=== PATIENT | female | born 1935 | race Caucasian/White ===

== ENCOUNTER → 2019-11-30 | Outpatient (CLI) | payer MEDICARE ==
[~2019-11-30] MED LIST: ALBU90OI61 INH; CETI5 PO; ESOM20 PO; FLUT44OIA IH; MONT4 PO; PRED20 PO
== END | disposition home or self-care (01) ==
LOC: PLD 11:43 → LAB SHORT 11:43
DX: D04.39 Carcinoma in situ of skin of other parts of face (principal)
CPT/HCPCS: 88305

== ENCOUNTER 2020-01-11 11:43 | Emergency (ER) | payer MEDICARE ==
[~2020-01-11] VITALS: Ht 154.9 cm; Wt 53.1 kg
[2020-01-11] MEDS ORDERED: Nystatin100000 UN1 PO (15:47)
[2020-01-11] MEDS ORDERED: Amoxicillin875 MG PO (15:47)
[2020-01-11] MEDS ORDERED: LISI5 PO (16:11)
== END 2020-01-11 15:57 | disposition home or self-care (01) ==
LOC: ER 11:43
DX: B37.0 Candidal stomatitis (principal); H66.91 Otitis media, unspecified, right ear; Z88.5 Allergy status to narcotic agent; Z88.8 Allergy status to other drugs, medicaments and biological substances; Z79.899 Other long term (current) drug therapy; Z79.52 Long term (current) use of systemic steroids; J45.909 Unspecified asthma, uncomplicated
CPT/HCPCS: 99282

== ENCOUNTER 2020-11-14 19:00 | Emergency (ER) | payer MEDICARE ==
[~2020-11-14] VITALS: Ht 154.9 cm; Wt 51.3 kg
[~2020-11-14 19:00] MED LIST changes: +Amoxicillin875 MG PO; +LISI5 PO; +Nystatin100000 UN1 PO
[2020-11-14] MEDS ORDERED: CEFP200 PO (23:35)
[2021-02-08] MEDS ORDERED: PROLIA60 MG/1 ML SC (14:14)
[2021-02-08] MEDS ORDERED: XYZAL5 MG PO (14:14)
== END 2020-11-15 | disposition home or self-care (01) ==
LOC: ER 19:00
DX: S81.811A Laceration without foreign body, right lower leg, initial encounter (principal); Z88.5 Allergy status to narcotic agent; Z88.1 Allergy status to other antibiotic agents; Z79.899 Other long term (current) drug therapy; X50.9XXA Other and unspecified overexertion or strenuous movements or postures, initial encounter
CPT/HCPCS: 12002; 90714; 99282-25; A9270

== ENCOUNTER 2021-01-26 06:49 | Day surgery (SDC) | payer MEDICARE ==
[~2021-01-26] VITALS: Wt 51.2 kg
[~2021-01-26 06:49] MED LIST changes: +CEFP200 PO
--- NOTE | 2021-01-26 06:58 | NUR ---
01/26/21 0658 Hetal Farias CHARTING BY MARELY RAINEY RN
[2021-01-26] MEDS ORDERED: NIFE30ER PO (07:09)
[2021-02-08] MEDS ORDERED: XYZAL5 MG PO (14:14)
[2021-02-08] MEDS ORDERED: PROLIA60 MG/1 ML SC (14:14)
== END 2021-01-26 08:48 | disposition home or self-care (01) ==
LOC: ORSCSDS 06:49
PROVIDERS: Ophthalmology
PROC: 08RJ3JZ Replacement of Right Lens with Synthetic Substitute, Percutaneous Approach (ICD-10-PCS; principal; 2021-01-26 08:00)
DX: H25.11 Age-related nuclear cataract, right eye (principal); I10 Essential (primary) hypertension; J45.909 Unspecified asthma, uncomplicated; Z79.899 Other long term (current) drug therapy
CPT/HCPCS: J2001; J2250; J3010; J3301; J7040; V2632

== ENCOUNTER 2021-05-26 20:19 | Emergency (ER) | payer MEDICARE ==
[~2021-05-26] VITALS: Ht 157.5 cm; Wt 50.4 kg
[~2021-05-26 20:19] MED LIST changes: +NIFE30ER PO; +PROLIA60 MG/1 ML SC; +XYZAL5 MG PO
[2021-05-26 20:49] LABS: BASOPHILS ABSOLUTE AUTO 0.04 K/mm3 (0.00-0.23); BASOPHILS PERCENT AUTO 1 % (0-2); EOSINOPHILS ABSOLUTE AUTO 0.37 K/mm3 (0.00-0.68); EOSINOPHILS PERCENT AUTO 4 % (0-6); Hematocrit 33.6 % (33.0-51.0); Hemoglobin 11.3 g/dL (11.5-16.0); IMMATURE GRAN ABSOLUTE AUTO 0.03 K/mm3 (0.00-0.10); IMMATURE GRAN PERCENT AUTO 0 % (0-1); LYMPHOCYTES ABSOLUTE AUTO 3.26 K/mm3 (0.84-5.20); LYMPHOCYTES PERCENT AUTO 37 % (21-46); MONOCYTES ABSOLUTE AUTO 0.82 K/mm3 (0.16-1.47); MONOCYTES PERCENT AUTO 9 % (4-13); Mean Corpuscular HGB 29.7 pg (26.0-34.0); Mean Corpuscular HGB Conc 33.6 g/dL (31.5-36.5); Mean Corpuscular Volume 88 fL (80-100); Mean Platelet Volume 12.1 fL (9.1-12.4); NEUTROPHILS ABSOLUTE AUTO 4.34 K/mm3 (1.96-9.15); NEUTROPHILS PERCENT AUTO 49 % (41-73); Platelet Count 285 K/mm3 (150-400); RDW Coefficient Variation 14.1 % (11.7-14.2); RDW Standard Deviation 45.5 fL (35.1-46.3); Red Blood Cell Count 3.81 M/mm3 (3.80-5.20); White Blood Cell Count 8.86 K/mm3 (4.00-11.30)
[2021-05-26 21:07] LABS: Alanine Aminotransfer (ALT/SGP 17 U/L (12-78); Albumin, Blood 3.3 g/dL (3.4-5.0); Albumin/Globulin Ratio 0.8 (0.8-1.8); Alk Phos 66 U/L (50-136); Anion Gap 6 mmol/L (6-16); Aspartate Aminotrans (AST/SGOT 18 U/L (12-37); Bilirubin, Total 0.2 mg/dL (0.1-1.0); Blood Urea Nitrogen 29 mg/dL (8-24); CO2, Blood 27 mmol/L (21-32); Calcium, Blood 9.2 mg/dL (8.5-10.1); Chloride, Blood 103 mmol/L (98-108); Creatinine, Blood 1.32 mg/dL (0.40-1.00); Globulin, Blood 4.1 g/dL (2.2-4.0); Glomerular Filtration Rate 38 (60-); Glucose, Blood 128 mg/dL (70-99); Potassium, Blood 3.8 mmol/L (3.5-5.5); Sodium, Blood 136 mmol/L (136-145); Total Protein, Blood 7.4 g/dL (6.4-8.2); Troponin I <0.015 ng/mL (0.000-0.040)
== END 2021-05-27 01:25 | disposition home or self-care (01) ==
LOC: ER 20:19
PROVIDERS: Student in an Organized Health Care Education/Training Program
DX: R55 Syncope and collapse (principal); R07.89 Other chest pain; R11.2 Nausea with vomiting, unspecified; R94.31 Abnormal electrocardiogram [ECG] [EKG]; J45.909 Unspecified asthma, uncomplicated; Z88.6 Allergy status to analgesic agent; Z88.8 Allergy status to other drugs, medicaments and biological substances; Z88.5 Allergy status to narcotic agent; Z79.899 Other long term (current) drug therapy
CPT/HCPCS: 71046; 80053; 84484; 85025; 93005; 93010; 99284-25

== ENCOUNTER → 2021-06-26 | Outpatient (CLI) | payer MEDICARE ==
[2021-06-26 14:23] LABS: Sodium, Urine 24 mmol/L (20-110)
[2021-06-26 14:26] LABS: Microalbumin, Urine Quant. <5.000 mg/L (0.000-20.000); Protein, Urine Quantitative <5.0 mg/dL (0.0-11.9)
== END | disposition home or self-care (01) ==
LOC: LAB SHORT 08:00 → LAB 08:00
PROVIDERS: Internal Medicine Nephrology
DX: N18.30 Chronic kidney disease, stage 3 unspecified (principal); D63.1 Anemia in chronic kidney disease; N25.81 Secondary hyperparathyroidism of renal origin; E55.9 Vitamin D deficiency, unspecified; E78.00 Pure hypercholesterolemia, unspecified; D51.8 Other vitamin B12 deficiency anemias; D52.8 Other folate deficiency anemias; D50.9 Iron deficiency anemia, unspecified; R76.9 Abnormal immunological finding in serum, unspecified; R94.5 Abnormal results of liver function studies; R94.6 Abnormal results of thyroid function studies
CPT/HCPCS: 81050; 82043; 82570; 84156; 84300

== ENCOUNTER 2023-06-17 14:23 | Inpatient (IN) | payer MEDICARE ==
[~2023-06-17] VITALS: Ht 152.4 cm; Wt 49.9 kg
[~2023-06-17 14:23] MED LIST changes: +MONT10T PO; -MONT4 PO; -NIFE30ER PO; +NIFE60ER PO
[2023-06-17 15:20] LABS: BASOPHILS ABSOLUTE AUTO 0.06 K/mm3 (0.00-0.23); BASOPHILS PERCENT AUTO 1 % (0-2); EOSINOPHILS ABSOLUTE AUTO 0.25 K/mm3 (0.00-0.68); EOSINOPHILS PERCENT AUTO 3 % (0-6); Hematocrit 39.8 % (33.0-51.0); Hemoglobin 12.4 g/dL (11.5-16.0); IMMATURE GRAN ABSOLUTE AUTO 0.03 K/mm3 (0.00-0.10); IMMATURE GRAN PERCENT AUTO 0 % (0-1); LYMPHOCYTES ABSOLUTE AUTO 2.24 K/mm3 (0.84-5.20); LYMPHOCYTES PERCENT AUTO 29 % (21-46); MONOCYTES PERCENT AUTO 13 % (4-13); Mean Corpuscular HGB 27.9 pg (26.0-34.0); Mean Corpuscular HGB Conc 31.2 g/dL (31.5-36.5); Mean Corpuscular Volume 90 fL (80-100); Mean Platelet Volume 11.6 fL (9.1-12.4); NEUTROPHILS ABSOLUTE AUTO 4.16 K/mm3 (1.96-9.15); NEUTROPHILS PERCENT AUTO 54 % (41-73); Platelet Count 403 K/mm3 (150-400); RDW Coefficient Variation 17.7 % (11.7-14.2); RDW Standard Deviation 56.8 fL (35.1-46.3); Red Blood Cell Count 4.44 M/mm3 (3.80-5.20); White Blood Cell Count 7.74 K/mm3 (4.00-11.30)
[2023-06-17 15:41] LABS: Albumin, Blood 3.1 g/dL (3.4-5.0); Albumin/Globulin Ratio 0.5 (0.8-1.8); Bilirubin, Total 0.1 mg/dL (0.1-1.0); Bun/Creatinine Ratio 18.9 (12.0-20.0); Calcium, Blood 11.5 mg/dL (8.5-10.1); Creatinine, Blood 2.54 mg/dL (0.40-1.00); Globulin, Blood 5.8 g/dL (2.2-4.0); Total Protein, Blood 8.9 g/dL (6.4-8.2)
[2023-06-17 16:11] LABS: Source, Urine Clean Catch
[2023-06-17 16:30] LABS: Appearance, Urine Clear (Clear); Bilirubin, Urine Neg (Neg); Blood, Urine 1+ (Neg); Color, Urine Yellow (P-Yellow); Glucose Qualitative, Urine Neg (Neg); Ketones, Urine Neg (Neg); Leukocyte Esterase, Urine Neg (Neg); Nitrite, Urine Neg (Neg); Protein, Urine 2+ (Neg); Specific Gravity, Urine 1.015 (1.003-1.022); Urobilinogen, Urine NORM (Normal)
[2023-06-17 17:07] LABS: Bacteria Few /hpf; Hyaline Casts 0-2 /lpf (0-2); Squamous Epithelial Cells Few /hpf (Few); White Blood Cells, Urine 0-2 /hpf (0-5)
[2023-06-17] MEDS ORDERED: CATAPRES0.1 MG PO (21:33)
[2023-06-17 21:37] VITALS: BP 171/87
[2023-06-17] MEDS ORDERED: LISI5 PO (22:03)
[2023-06-17] MEDS ORDERED: LISI20 PO (22:03)
[2023-06-17] MEDS ORDERED: VITAMIN D325 MC3 PO (22:05)
[2023-06-18 03:45] VITALS: BP 171/79
--- NOTE | 2023-06-18 03:46 | NUR ---
PATIENT CAME UP FROM ED, A/OX4, ROOM AIR. C/O DIZZINESS AND RECURRENT FALLS, FOUND TO HAVE CAIT. IV FLUIDS NORMAL SALINE INFUSING. BLOOD PRESSURES WERE ELEVATED IN 200'S IN ED, PER EMAR PRN HYDRALAZINE FOR SYSTOLIC >180. ULTRASOUND OF CAROTID ARTERIES COMPLETED IN ED. MRI COMPLETED 06/17 AFTER ARRIVAL TO UNIT. PT REFUSED SCD'S DUE TO FREQUENT URINATION, STANDBY ASSIST TO BSC. HAS CHEMICAL PROPHYLAXIS TO START LATER TODAY. FALL RISK PRECUATIONS IN PLACE. BED ALARM ON, BED LOCKED IN LOW POSITION, CALL LIGHT IN REACH, NONSKID SOCKS ON. ABLE TO MAKE NEEDS KNOWN.
[2023-06-18 06:39] LABS: Bun/Creatinine Ratio 18.9 (12.0-20.0); Calcium, Blood 9.9 mg/dL (8.5-10.1); Creatinine, Blood 2.12 mg/dL (0.40-1.00); Potassium, Blood 4.4 mmol/L (3.5-5.5)
[2023-06-18 07:41] VITALS: BP 129/76
--- NOTE | 2023-06-18 13:21 | NUR ---
Patient is sitting on the EOB and alert. She tells me about her medical issues and the frustrations of not being able to perform the hobbies and chores that she is accustomed to doing. She tells me about how her grown children are lovingly irritated with her for pushing her body so hard that she is passing out repeatedly. 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 I then bring her my guitar and she plays a bit but struggles to push down the strings. I play a couple of therapeutic guitar pieces for her which brings a smile to her face. I also provide therapeutic listening and prayer. Patient voices gratitude and states that our conversation has lessened the burden of her thoughts. I will continue to remain available to patient and family.
[2023-06-18 15:04] VITALS: BP 180/99
[2023-06-18 15:59] VITALS: BP 160/80
[2023-06-18 17:43] VITALS: BP 168/80
--- NOTE | 2023-06-18 18:16 | NUR ---
SHIFT SUMMARY PT AOX4, SBA TO THE BS. PT HAS HAD ELEVATED HR THIS SHIFT, MEDICATED PER THE EMAR. SHE HAS ALSO GONE IN AND OUT OF AFIB WITH RVR PER TELE. STRIPS IN THE CHART. PROVIDER NOTIFIED AND NEW MEDICATIONS STARTED AND ADMINISTERED. PT EDUCATED ON THE MEDICATIONS AND WRITTEN EDUCATION PROVIDED. PT SAID SHE FELT A FLUTTERING IN HER CHEST AND DID "NOT FEEL RIGHT" AT THE TIME OF THESE EVENTS. SHE DENIED CP BUT SOME PRESSURE THOUGH. DR. AMOS IS FULLY AWARE OF THE SITUATION. PT IS VOIDING WELL AND HER APPETITE IS GOOD. NO C/O PAIN BUT HAD SOME DIZZINESS THIS AFTERNOON WHILE TRANSFERRING TO THE [facility] [place]. CALL LIGHT WITHIN REACH, BED IN THE LOWEST POSITION. WILL REPORT TO ONCOMING NURSE.
[2023-06-19 05:03] LABS: BASOPHILS ABSOLUTE AUTO 0.04 K/mm3 (0.00-0.23); BASOPHILS PERCENT AUTO 1 % (0-2); EOSINOPHILS ABSOLUTE AUTO 0.48 K/mm3 (0.00-0.68); EOSINOPHILS PERCENT AUTO 7 % (0-6); Hematocrit 34.2 % (33.0-51.0); Hemoglobin 10.8 g/dL (11.5-16.0); IMMATURE GRAN ABSOLUTE AUTO 0.02 K/mm3 (0.00-0.10); IMMATURE GRAN PERCENT AUTO 0 % (0-1); LYMPHOCYTES ABSOLUTE AUTO 1.91 K/mm3 (0.84-5.20); LYMPHOCYTES PERCENT AUTO 27 % (21-46); MONOCYTES PERCENT AUTO 11 % (4-13); Mean Corpuscular HGB 27.9 pg (26.0-34.0); Mean Corpuscular HGB Conc 31.6 g/dL (31.5-36.5); Mean Corpuscular Volume 88 fL (80-100); Mean Platelet Volume 10.7 fL (9.1-12.4); NEUTROPHILS ABSOLUTE AUTO 3.82 K/mm3 (1.96-9.15); NEUTROPHILS PERCENT AUTO 54 % (41-73); Platelet Count 362 K/mm3 (150-400); RDW Coefficient Variation 17.5 % (11.7-14.2); RDW Standard Deviation 55.2 fL (35.1-46.3); Red Blood Cell Count 3.87 M/mm3 (3.80-5.20); White Blood Cell Count 7.07 K/mm3 (4.00-11.30)
[2023-06-19 05:36] LABS: Albumin, Blood 2.6 g/dL (3.4-5.0); Anion Gap 8 mmol/L (6-16); Blood Urea Nitrogen 36 mg/dL (8-24); CO2, Blood 20 mmol/L (21-32); Calcium, Blood 9.3 mg/dL (8.5-10.1); Chloride, Blood 111 mmol/L (98-108); Glomerular Filtration Rate 24 (60-); Glucose, Blood 96 mg/dL (70-99); Magnesium, Blood 1.7 mg/dL (1.6-2.4); Phosphorus, Blood 3.3 mg/dL (2.5-4.9); Sodium, Blood 139 mmol/L (136-145)
--- NOTE | 2023-06-19 06:20 | NUR ---
SHIFT SUMMARY A/OX4, ROOM AIR. PATIENT HAS BEEN NSR ON TELE ALL NIGHT. SHIFT UNREMARKABLE. STAND BY TO BSC. BASELINE UPPER EXTREMITY TREMORS. ABLE TO MAKE NEEDS KNOWN. CALL LIGHT IN REACH.
[2023-06-19 06:46] VITALS: BP 132/63
[2023-06-19 07:29] VITALS: BP 162/78
[2023-06-19 15:55] VITALS: BP 138/67
--- NOTE | 2023-06-19 18:21 | NUR ---
NOTE PT ALERT AND ORIENTED. ANXIOUS AT TIMES D/T THE PERSON ACROSS THE LARA IS LOUD. REFUSES TO HAVE HER DOOR CLOSED. VSS. TELEMETRY WAS SR HR 80'S. NO PVC NOTED. DENIED PAIN OR SOB. IVF INFUSING 50 ML/HR. DR HESTER WAS HERE. VOIDING. TREMULOUS WITH ACTIVITY. NO SOB THOUGH. SHE DID REQUEST A PRN BREATHING TREATMENT. NO AFIB AFTER TREATMENT. SHE MAINTAINED SINUS RHYTHM. EATING WELL. LUNGS CTA THIS EVENING. CONTINUE POC.
[2023-06-19 19:11] VITALS: BP 139/68
--- NOTE | 2023-06-20 01:50 | NUR ---
06/19/231953 PT LYING ON BED, REPORTS SOB. PT'S O2 IS 94% ON RA, HER HR IS 86. TELE SHOWING NSR AT 85. RT ASSESSED PT, RECOMMENDED NEBS AND MAYBE SOMETHING FOR ANXIETY. WILL CALL DR TO GET THESE ORDERS. PT REPORTS PAIN ON BACK OF R ARM OF 5/10, NO PAIN MEDS ORDERED AT THIS TIME. WILL F/U ON POSSIBLE PAIN MEDS AND OFFER HOT OR COLD THERAPY. NO OTHER APPARENT SIGNS OF DISTRESS. CALL LIGHT IS IN REACH. BED ALARM IS ON.
--- NOTE | 2023-06-20 01:54 | NUR ---
06/19/232045 GAVE ANXIETY MED, WILL EVAL FOR EFFECT. NO OTHER APPARENT SIGNS OF DISTRESS. CALL LIGHT IS IN REACH. BED ALARM IS ON.
--- NOTE | 2023-06-20 01:54 | NUR ---
0000 PT LYING IN BED, EYES CLOSED, APPEARS TO BE RESTING. BREATHING IS EVEN, UNLABORED. NO APPARENT SIGNS OF DISTRESS. CALL LIGHT IS IN REACH. BED ALARM IS ON.
[2023-06-20 03:39] VITALS: BP 159/77
[2023-06-20 05:37] LABS: Hematocrit 35.6 % (33.0-51.0); Hemoglobin 11.5 g/dL (11.5-16.0)
[2023-06-20 06:09] LABS: Albumin, Blood 2.6 g/dL (3.4-5.0); Anion Gap 7 mmol/L (6-16); Blood Urea Nitrogen 36 mg/dL (8-24); Bun/Creatinine Ratio 18.8 (12.0-20.0); CO2, Blood 20 mmol/L (21-32); Calcium, Blood 9.2 mg/dL (8.5-10.1); Chloride, Blood 110 mmol/L (98-108); Creatinine, Blood 1.91 mg/dL (0.40-1.00); Glomerular Filtration Rate 25 (60-); Glucose, Blood 90 mg/dL (70-99); Magnesium, Blood 1.9 mg/dL (1.6-2.4); Phosphorus, Blood 3.6 mg/dL (2.5-4.9); Potassium, Blood 4.2 mmol/L (3.5-5.5); Sodium, Blood 137 mmol/L (136-145)
--- NOTE | 2023-06-20 06:24 | NUR ---
0400 PT LYING IN BED, WAKES EASILY TO VERBAL STIMULI. NO APPARENT SIGNS OF DISTRESS. CALL LIGHT IS IN REACH. BED ALARM IS ON.
--- NOTE | 2023-06-20 06:25 | NUR ---
PT IS AAO X 4, ON RA. PT REPORTED R ARM PAIN, NO PAIN MEDS WERE ORDERED. PT REPORTS SHE TAKES TYLENOL FOR IT AT HOME, GOT TYLENOL ORDERED THIS MORNING. TELE NSR. AFTER GETTING UP TO THE BATHROOM PT DOES GET SOB, SHE ALSO HAS SOME SLIGHT ANXIETY. GOT NEBS AND ATARAX ORDERED, GAVE X 1.
--- NOTE | 2023-06-20 06:26 | NUR ---
PT LYING IN BED, AWAKE, WATCHING TV. NO APPARENT SIGNS OF DISTRESS. CALL LIGHT IS IN REACH. BED ALARM IS ON. NO OTHER CHANGES THIS SHIFT.
[2023-06-20 07:50] VITALS: BP 153/67
[2023-06-20 16:30] VITALS: BP 149/73
--- NOTE | 2023-06-20 18:02 | NUR ---
NOTE PT ALERT. DAUGHTER THAT WAS TOLD TO LEAVE D/T HER OBVIOUS ILLNESS WENT TO THE ER. PT AWAK EAND ALERT. UP TO BSC WITH SBA. LARGE BM. VSS. VOIDING WELL. IVF INFUSING WELL. GOOD APPETITE. DENIED DISCOMFORT. CARE ON GOING.
[2023-06-20 19:26] VITALS: BP 147/67
[2023-06-21 04:16] VITALS: BP 165/69
--- NOTE | 2023-06-21 05:30 | NUR ---
SHIFT SUMMERY, PT RESTING IN BED, PT ASLEEP MOST OF THE NIGHT. CALL LIGHT IN REACH.
[2023-06-21 05:55] LABS: Hematocrit 34.8 % (33.0-51.0); Hemoglobin 11.1 g/dL (11.5-16.0)
[2023-06-21 06:58] LABS: Albumin, Blood 2.6 g/dL (3.4-5.0); Anion Gap 6 mmol/L (6-16); Blood Urea Nitrogen 30 mg/dL (8-24); Bun/Creatinine Ratio 15.7 (12.0-20.0); CO2, Blood 20 mmol/L (21-32); Calcium, Blood 9.1 mg/dL (8.5-10.1); Chloride, Blood 112 mmol/L (98-108); Creatinine, Blood 1.91 mg/dL (0.40-1.00); Glomerular Filtration Rate 25 (60-); Glucose, Blood 83 mg/dL (70-99); Magnesium, Blood 1.9 mg/dL (1.6-2.4); Phosphorus, Blood 3.7 mg/dL (2.5-4.9); Potassium, Blood 4.1 mmol/L (3.5-5.5); Sodium, Blood 138 mmol/L (136-145)
[2023-06-21 07:26] VITALS: BP 153/80
[2023-06-21] MEDS ORDERED: ELIQUIS2.5 MG PO (14:21)
[2023-06-21] MEDS ORDERED: BUSP5 PO (14:21)
[2023-06-21] MEDS ORDERED: SODBIC650 PO (14:22)
[2023-06-21] MEDS ORDERED: METO50ER PO (14:22)
[2023-06-21] MEDS ORDERED: ASPI81CH PO (14:23)
--- NOTE | 2023-06-21 15:47 | NUR ---
PT AWAKE DURING SHIFT REPORT. PLEASANT AND CO-OP WITH CARE. DR HESTER IN EARLY, JUST PRIOR TO REPORT. PT HOPING TO GO HOME. UP WITH SBA TO [facility] USING FWW. DR AMOS LATER IN TO SEE PT AND DISCUSS PLAN OF CARE. PT TO D/C TO HOME. MEDS FAXED PER PT REQUEST UNTIL PT ABLE TO OBTAIN MAIL ORDER PRESCRIPTIONS. PT TO F/U WITH DR HESTER AND EFM WITH IN ONE WEEK. PT VERBALIZED UNDERSTANDING. PT ASSISTED OUT WITH DAUGHTER AND BELONGINGS VIA W/C.
== END 2023-06-21 16:04 | disposition home or self-care (01) | DRG 683 ==
LOC: ER 14:23 → MEDS 14:24
PROVIDERS: Family Medicine; Internal Medicine Nephrology; Nurse Practitioner Acute Care; Physician Assistant; ADMIT Student in an Organized Health Care Education/Training Program
DX: N17.9 Acute kidney failure, unspecified (principal); E87.20 Acidosis, unspecified; I16.1 Hypertensive emergency; N18.30 Chronic kidney disease, stage 3 unspecified; I12.9 Hypertensive chronic kidney disease with stage 1 through stage 4 chronic kidney disease, or unspecified chronic kidney disease; D50.9 Iron deficiency anemia, unspecified; E88.09 Other disorders of plasma-protein metabolism, not elsewhere classified; I16.0 Hypertensive urgency; M81.0 Age-related osteoporosis without current pathological fracture; G25.0 Essential tremor; E86.0 Dehydration; I48.91 Unspecified atrial fibrillation; W10.9XXA Fall (on) (from) unspecified stairs and steps, initial encounter; J45.909 Unspecified asthma, uncomplicated; Z88.5 Allergy status to narcotic agent; Z88.8 Allergy status to other drugs, medicaments and biological substances; Z88.1 Allergy status to other antibiotic agents; Z86.718 Personal history of other venous thrombosis and embolism; Z79.51 Long term (current) use of inhaled steroids; Z79.899 Other long term (current) drug therapy; Z98.890 Other specified postprocedural states; Z90.710 Acquired absence of both cervix and uterus; Z79.82 Long term (current) use of aspirin
CPT/HCPCS: 36415; 70450; 70551; 71046; 76770; 80048; 80053; 80069; 81001; 82550; 83690; 83735; 84484; 85014; 85018; 85025; 93005; 93010; 93880; 94640; 94664; 94760; 96361; 96365; 96366; 96372; 96374; 96375; 99285-25; A9270; G0378; J1644; J3475; J7030; J7040; Q2036

== ENCOUNTER 2024-02-05 08:52 | Day surgery (SDC) | payer MEDICARE ==
[~2024-02-05] VITALS: Ht 152.4 cm; Wt 48.5 kg
[~2024-02-05 08:52] MED LIST changes: +ASPI81CH PO; +BUSP5 PO; +Balanced Salt Epinephrine Irrigation Solution 500 mL IR SCH; +CATAPRES0.1 MG PO; +ELIQUIS2.5 MG PO; +LISI20 PO; +Lidocaine HCl/Pf 1% 5 ML VIAL XX SCH; +METO50ER PO; +NS 500 ML IV ONE; +PHENYLEPHRINE\\TROPICAMIDE\\TETRACAINE OPHTHALMIC DILATING SOLN LEFTEYE PRN; +Povidone-Iodine 450 DROP/30 ML Solution LEFTEYE SCH; +SODBIC650 PO; +Triamcinolone Inj Susp 40 MG / ML 1ML Vial INJ SCH; +Triamcinolone Inj Susp 40 MG / ML 1ML Vial ONE; +VITAMIN D325 MC3 PO
[2024-02-05] MEDS ORDERED: NS 500 ML IV ONE (09:05)
[2024-02-05] MEDS ORDERED: QVAR REDIHALE10.6 G2 IH (09:16)
[2024-02-05] MEDS ORDERED: Midazolam HCl 1MG / ML 2ML Vial ONE (09:44)
[2024-02-05 10:26] VITALS: BP 124/62
== END 2024-02-05 10:31 | disposition home or self-care (01) ==
LOC: ORSCSDS 08:52
PROVIDERS: Ophthalmology
PROC: 08RK3JZ Replacement of Left Lens with Synthetic Substitute, Percutaneous Approach (ICD-10-PCS; principal; 2024-02-05 10:00)
DX: H25.813 Combined forms of age-related cataract, bilateral (principal); J45.909 Unspecified asthma, uncomplicated; F41.9 Anxiety disorder, unspecified; I12.9 Hypertensive chronic kidney disease with stage 1 through stage 4 chronic kidney disease, or unspecified chronic kidney disease; N18.9 Chronic kidney disease, unspecified; I48.91 Unspecified atrial fibrillation; F32.A Depression, unspecified; Z79.82 Long term (current) use of aspirin; Z79.01 Long term (current) use of anticoagulants; Z79.899 Other long term (current) drug therapy
CPT/HCPCS: J2250; J3301; J7040; V2632

== ENCOUNTER → 2024-09-07 | Outpatient (CLI) | payer MEDICARE ==
[~2024-09-07] MED LIST changes: -Balanced Salt Epinephrine Irrigation Solution 500 mL IR SCH; -Lidocaine HCl/Pf 1% 5 ML VIAL XX SCH; -NS 500 ML IV ONE; -PHENYLEPHRINE\\TROPICAMIDE\\TETRACAINE OPHTHALMIC DILATING SOLN LEFTEYE PRN; -Povidone-Iodine 450 DROP/30 ML Solution LEFTEYE SCH; +QVAR REDIHALE10.6 G2 IH; -Triamcinolone Inj Susp 40 MG / ML 1ML Vial INJ SCH; -Triamcinolone Inj Susp 40 MG / ML 1ML Vial ONE
[2024-09-07 12:54] LABS: Creatinine Urine 35.2 mg/dL (27.00-270.00); Microalbumin, Urine Quant. 30.2 mg/L (0.000-20.000); Protein, Urine Quantitative 17.5 mg/dL (0.0-11.9)
== END ==
LOC: LAB 08:30 → LAB SHORT 08:30
PROVIDERS: Internal Medicine Nephrology
DX: N18.30 Chronic kidney disease, stage 3 unspecified (principal); D63.1 Anemia in chronic kidney disease; N25.81 Secondary hyperparathyroidism of renal origin; E55.9 Vitamin D deficiency, unspecified; E29.1 Testicular hypofunction; R76.9 Abnormal immunological finding in serum, unspecified; R94.5 Abnormal results of liver function studies; G50.9 Disorder of trigeminal nerve, unspecified
CPT/HCPCS: 81050; 82043; 82570; 84156

== ENCOUNTER 2024-12-01 12:48 | Day surgery (SDC) | payer MEDICARE ==
[~2024-12-01] VITALS: Ht 152.4 cm; Wt 47.9 kg
[~2024-12-01 12:48] MED LIST changes: +Glycopyrrolate 0.2 MG/ML 1MLVIAL ONE; +Lactated Ringer's 1,000 ML IV ONE; +Lidocaine 2% 5 ML SDV ONE; +Lidocaine HCl/Pf 1% 5 ML VIAL ONE; +Ondansetron HCl 2 MG / ML 2ML Vial ONE; +ePHEDrine Sulfate 50 MG/ML 1ML Injection ONE; +propofoL 50 ML IV ONE
[2024-12-01] MEDS ORDERED: Lactated Ringer's 1,000 ML IV ONE (13:39)
[2024-12-01] MEDS ORDERED: LEVOCETIRIZINE D5 MG (13:42)
[2024-12-01] MEDS ORDERED: ASMANEX110 MC3 (13:43)
[2024-12-01] MEDS ORDERED: Atarax10 MG (13:44)
[2024-12-01] MEDS ORDERED: NASONEX 24HR AL17 ML (13:44)
[2024-12-01] MEDS ORDERED: PROLIA60 MG/1 ML (13:45)
[2024-12-01 15:40] VITALS: BP 144/68
== END 2024-12-01 15:20 | disposition home or self-care (01) ==
LOC: ORSCSDS 12:48
DX: R13.14 Dysphagia, pharyngoesophageal phase (principal); K22.2 Esophageal obstruction; K22.10 Ulcer of esophagus without bleeding; K44.9 Diaphragmatic hernia without obstruction or gangrene; K21.9 Gastro-esophageal reflux disease without esophagitis; I48.91 Unspecified atrial fibrillation; Z79.01 Long term (current) use of anticoagulants; F41.8 Other specified anxiety disorders; J45.909 Unspecified asthma, uncomplicated; I12.9 Hypertensive chronic kidney disease with stage 1 through stage 4 chronic kidney disease, or unspecified chronic kidney disease; N18.9 Chronic kidney disease, unspecified; E78.5 Hyperlipidemia, unspecified; Z79.899 Other long term (current) drug therapy
CPT/HCPCS: 88305; 88342; C1726; J2003; J2405; J2704; J7120